=== PATIENT | female | born 1985 ===

== ENCOUNTER 2018-01-01 07:53 | Emergency (ER) | payer OTHER ==
--- NOTE | 2018-01-01 10:04 | OBHP ---
Datetime: 01/01/2018 09:59 IP Adm Impression: Term, intrauterine IP Admit Plan: Discharge home Admit Comment, IP Provider: @ 37.3 wks GA c/o vaginal spotting htis morning x 3. pt dnie sany u rinary or bowel copaints. pt dnies ny recent interocuse, dneis ctx, lof, +FM. pt preors has not seen any additionl spottoting since being here. 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 PMH: denies PSH: denies FHX: non contribuotyr MEDS: PNV NKDA SHX: negative etoh, tobacco ivda A/P @ 37.3 wks GA no evidence of VB, ot in tlabor with mtaeral and featl well being -rh postive as per ob records -dc home -labor, vb, pain precaiotng -f/u PMD 01/02 Pelvic Type - PN: Adequate Extremities - PN: Normal Abdomen - PN: Normal Back - PN: Normal Breast - PN: Normal Lungs - PN: Normal Heart - PN: Normal Thyroid - PN: Normal Neurologic - PN: Normal HEENT - PN: Normal General - PN: Normal Presentation-Admit: Vertex FHR - Baseline A Provider: 125 Membranes, Provider: Intact Contraction Comments Provider: irregular Comments, ACOG Physical Exam: Specululm exam: no blood, scant discharge dark brwon cervix: closed, long , posteiroe Gestation - Est Wks by US: 37.3 EGA AdmitDate IP: 37.3 Vital Signs Provider: Reviewed; Within Normal Limits IP Chief Complaint: Vaginal bleeding NICHD Variability Prov Fetus A: Moderate 6-25bpm FHR Category Provider Fetus A: Category I NICHD Decel Fetus A IP Provider: None Dilatation, Provider: 0 Effacement, Provider: 0 Station, Provider: -3 Genitourinary Exam: Normal DTRs - PN: Normal
--- NOTE | 2018-01-01 10:06 | OBDCSUM ---
Datetime: 01/01/2018 10:03 Discharged to, Provider: Home Follow up at, Provider: DR. WHITE Disch Instr Activity: Normal activity Disch Instr Diet: Regular Discharge Time: 01/01/2018 10:03 Follow up in weeks, Provider: 01/02/18 Disch Referrals: None Disch Activity Restrictions: No lifting
[2018-01-01 14:15] VITALS: BP 108/70; PULSE 75; RESP 20
== END 2018-01-01 10:15 | disposition home or self-care (01) ==
LOC: C.EROB 07:53
DX: O26.853 Spotting complicating pregnancy, third trimester (principal); Z3A.37 37 weeks gestation of pregnancy

== ENCOUNTER 2018-01-03 09:05 | Inpatient (IN) | payer OTHER ==
[2018-01-03] MEDS ORDERED: Lactated Ringer's 1,000 ML IV SCH ×2 (10:15)
[2018-01-03 10:32] LABS: BASO % 0.1 % (0.0-2.0); EOS % 0.3 % (0.0-4.0); LYMPH # 1.2 K/uL (1.0-4.3); LYMPH % 16.5 % (20.0-40.0); MEAN CELL VOLUME 82.2 fL (81.0-99.0); MEAN CORPUSCULAR HEMOGLOBIN 27.4 pg (27.0-31.0); MEAN CORPUSCULAR HGB CONC 33.4 g/dL (33.0-37.0); MEAN PLATELET VOLUME 7.8 fL (7.2-11.7); MONO # 0.5 K/uL (0.0-0.8); MONO % 6.9 % (0.0-10.0); NEUT # 5.4 K/uL (1.8-7.0); NEUT % 76.2 % (50.0-75.0); NRBC % 0.1 % (0.0-2.0); RBC 4.01 Mil/uL (3.80-5.20); RED CELL DISTRIBUTION WIDTH 15.7 % (11.5-14.5); WHITE BLOOD COUNT 7.1 K/uL (4.8-10.8)
[2018-01-03 10:37] LABS: SQUAMOUS EPITHIAL 3 /hpf (0-5); URINE BILIRUBIN NEGATIVE (NEGATIVE); URINE BLOOD NEGATIVE (NEGATIVE); URINE CLARITY Clear (Clear); URINE COLOR Straw (YELLOW); URINE GLUCOSE (UA) NORMAL (Normal); URINE LEUKOCYTE ESTERASE NEG Leu/uL (Negative); URINE PROTEIN NEGATIVE (NEGATIVE); URINE UROBILINOGEN NORMAL mg/dL (0.2-1.0)
--- NOTE | 2018-01-03 10:41 | OBADHP ---
Datetime: 01/03/2018 10:20 Admit Comment, IP Provider: Patient seen and evaluated 1005 hours. This is a private patient of Dr. Gale Rivera 32 y.o. , LMP unsure, CHRISTO 01/19/18, EGA 37w 5d c/o Ctx: onset 0300 hours. Started timing at 0630 hours, pain scale 7/10 to 8/10, every 5 minutes. (+) AFM; denies LOF, VB. Started passing mucou s plug Tuesday and a bit more 0755 hours. care: Dr. Rivera; denies any issues. 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 Denies abnormal Pap, STIs, fibroids. PMH: denies PSH: denies Allergies: penicillin = anaphylaxis. papaya = urticaria Soc Hx: denies tobacco, illicit drug or EtOH use. x 6 years. Works in sales Fam Hx: Mother age 40 - pneumonia, CA; h/o cervical cancer. Father alive age 50+ - HTN, DM, dyslipidemia; legally blind. No other fam h/o cancner P.E.: as above. WD in pain with contractions. Awake, alert, oriented to time, person and place. Assessment: 32 y.o. P0010, 37w 5d, in labor. Category 1 tracing. Case D/W Dr. Rivera; start pitoci n for augmentaiton. Patient not interested in epidural at this time. GBS (-). Patient is clinically s table. Plan: 1) Admit 2) NPO 3) Admission labs 4) continuous EFM 5) IVFs 6) Pitocin 7) Anticipate vaginal delivery - as per, and discussed with, Dr. Rivera Pelvic Type - PN: Adequate Extremities - PN: Normal Abdomen - PN: Normal Back - PN: Normal Breast - PN: Not Done Lungs - PN: Normal Heart - PN: Normal Thyroid - PN: Normal HEENT - PN: Normal General - PN: Normal Weight - Estimated: 3518 Presentation-Admit: Vertex FHR - Baseline A Provider: 140 Contraction Comments Provider: 3-5 Comments, ACOG Physical Exam: Abdomen: Gravid. Firm with contractions. Fundal height 38 cm All other systems reviewed and are negative Gestation - Est Wks by US: 37w 5d Vital Signs Provider: Reviewed IP Chief Complaint: Uterine contractions NICHD Variability Prov Fetus A: Moderate 6-25bpm NICHD Accel Fetus A IP Provider: 10X10 FHR Category Provider Fetus A: Category I NICHD Decel Fetus A IP Provider: None Dilatation, Provider: 6 Effacement, Provider: 70 Station, Provider: -3 Genitourinary Exam: Normal DTRs - PN: Normal EGA AdmitDate IP: 37.5 IP Adm Impression: Term, intrauterine ; Active labor; Intact Membranes IP Admit Plan: Admit to unit; Initiate labor augmentation protocol Datetime: 01/01/2018 09:59 Neurologic - PN: Normal Membranes, Provider: Intact
[2018-01-03] MEDS ORDERED: Oxytocin 30 UNIT 30 UNITS/500 ML BAG IV ONE ×3 (10:47→12:59)
[2018-01-03] MEDS ORDERED: Dextrose 5%/Lactated Ringer's 1,000 ML IV SCH (11:00)
[2018-01-03 11:05] LABS: ALB/GLOB RATIO 1.1 (1.0-2.1); ALBUMIN 3.7 g/dL (3.5-5.0); ALT/SGPT 23 U/L (9-52); AST/SGOT 27 U/L (14-36); BLOOD UREA NITROGEN 10 mg/dL (7-17); CALCIUM 9.2 mg/dl (8.6-10.4); GFR AFRICAN-AMERICAN > 60; GFR NON-AFRICAN AMERICAN > 60
--- NOTE | 2018-01-03 13:04 | OBPN ---
Datetime: 01/03/2018 12:55 IP Progress Impression: Normal progression of labor IP Procedures: Artificial ROM Pool Provider: Positive Membranes, Provider: Ruptured Contraction Comments Provider: q 2-3 min FHR - Baseline A Provider: 155 Gestation - Est Wks by US: 37.5 Presentation-Admit: Vertex IP Progress Note Comment: pt ewa and exmaien dfor progtresoisn o lfoab VS EFM: Cat I TO:O: q 3 mn -2 arom clear a/p g10 @ 37.5 wks in labor con tcurent maint Vital Signs Provider: Reviewed; Within Normal Limits FHR Category Provider Fetus A: Category I NICHD Variability Prov Fetus A: Moderate 6-25bpm Dilatation, Provider: 6 Effacement, Provider: 90 Station, Provider: -2 Datetime: 01/03/2018 10:20 Weight - Estimated: 3518 NICHD Accel Fetus A IP Provider: 10X10 NICHD Decel Fetus A IP Provider: None
[2018-01-03] MEDS ORDERED: Bupivacaine HCl/FentaNYL Cit 100 ML EPI ONE (14:21)
--- NOTE | 2018-01-03 16:16 | OBPN ---
Datetime: 01/03/2018 16:03 IP Progress Impression: Normal progression of labor IP Informed Consent Obtain: Vaginal Delivery IP Procedures: Artificial ROM IP Progress Plan: Continue present management Membranes, Provider: Ruptured FHR - Baseline A Provider: 125 Gestation - Est Wks by US: 37.5 Presentation-Admit: Vertex IP Progress Note Comment: pt seen adn examiend for progresiosn o labor s/ p eidurla a/p @ 37.5 wks GA in labor cont ptiocn as per protonc otn current manganet Vital Signs Provider: Reviewed; Within Normal Limits FHR Category Provider Fetus A: Category I NICHD Variability Prov Fetus A: Moderate 6-25bpm Dilatation, Provider: 7 Effacement, Provider: 90 Station, Provider: -2
[2018-01-03] MEDS ORDERED: Benzocaine/Menthol 20%-0.5% Topical Spray (60 ml) TOP PRN (18:49)
[2018-01-03] MEDS ORDERED: Oxycodone/Acetaminophen 5/325 mg Tab PO PRN ×2 (18:49)
--- NOTE | 2018-01-03 18:49 | OBDS ---
DELIVERY PERSONNEL Delivery Doctor: Tyler Rivera MD Anesthesiologist: MATERNAL INFORMATION Delivery Anesthesia: Epidural Medications in Delivery: Pitocin 30 units IV; Estimated Blood Loss (ml): 300 Provider Comments: pt was fully dilated and pushing. verbal consent for right mediolateral epistiomy . Atruamtic, deliver yof head, nuchal cord x 1 reduced. atruamtc, spontaneous delivery of anteiror fo llowed by posterior shoulder followed by delivery of the body. both oral and nasal passage of the bab y were bulb suctioned. umbilcal cord was clamped and cut. baby given to assisted living nursing director. cord blood and cord gases collected adn sent x 2. right mediolateral epistiomy repaired with 2-0 and 3-0 chormic. spotneoau deliveyr of intact placenta with membrnes. fundus firm, good hemostaiss, no comlications live male apars 9,9 weigh tof 6lb 10 ounces ebl 300ml LABOR SUMMARY EDC: 01/19/2018 00:00 No. Babies in Womb: 1 LABOR INFORMATION Reason for Induction: Not Applicable Oxytocin: Augmentation Group B Beta Strep: Negative (Annotations: 12/26/17) Antibiotics # of Doses: 0 Antibiotics Time of Last Dose: 0 Steroids Given: None Reason Steroids Not Administered: Not Applicable MEMBRANES Membranes Rupture Method: Artificial Rupture of Membranes: 01/03/2018 12:55 Length of Rupture (hrs): 5.70 Amniotic Fluid Color: Clear Amniotic Fluid Amount: Moderate Amniotic Fluid Odor: Normal STAGES OF LABOR Stage 3 hrs: 0 Stage 3 min: 3 VAGINAL DELIVERY Episiotomy: Right Mediolateral Laceration Extension: N/A Laceration Type: None Laceration Repair: Yes Initial Vag Sponge Count: 10 Final Vag Sponge Count: 10 Initial Vag Sharps Count: 2 Final Vag Sharps Count: 2 Sponge Count Correct: Yes; Vaginal Sweep Performed Count Comment: 2 suture needle and 1 needle for drawing BABY A INFORMATION Delivery Date/Time: 01/03/2018 18:37 Method of Delivery: Vaginal Born in Route : No : N/A Forceps: N/A Vacuum Extraction: N/A Shoulder Dystocia : No SHOULDER DYSTOCIA BABY A Infant Delivery Date/Time: 01/03/2018 18:37 PRESENTATION/POSITION BABY A Presentation: Cephalic Cephalic Presentation: Vertex Vertex Position: Left Occipital Anterior Breech Presentation: N/A PLACENTA INFORMATION BABY A Placenta Delivery Time : 01/03/2018 18:40 Placenta Method of Delivery: Spontaneous Placenta Status: Delivered SCORES BABY A Heart Rate 1 min: >100 bpm Resp Effort 1 min: Good Cry Reflex Irritability 1 min: Cough or Sneeze or Pulls Away Muscle Tone 1 min: Active Motion Color 1 min: Body [place], Extremities Blue Resuscitation Effort 1 min: N/A SCORE 1 MIN: 9 Heart Rate 5 min: >100 bpm Resp Effort 5 min: Good Cry Reflex Irritability 5 min: Cough or Sneeze or Pulls Away Muscle Tone 5 min: Active Motion Color 5 min: Body [place], Extremities Blue Resuscitation Effort 5 min: N/A SCORE 5 MIN: 9 INFORMATION BABY A Gestational Age at Delivery: 37.5 Gestational Status: Term Outcome : Liveborn Condition : Stable Sex: Male IDENTIFICATION/MEDS BABY A ID Band Number: [id number] Sensor Number: [id number] WEIGHT/LENGTH BABY A Infant Birthweight (gms): 3020 Infant Weight (lb): 6 Weight (oz): 10 Length Inches: 19.00 Infant Length cms: 48.3 CORD INFORMATION BABY A No. Cord Vessels: 3 Nuchal Cord : Around Neck x1, Tight Cord Blood Taken: Yes Suction: Mouth; Nose ASSESSMENT BABY A Infant Complications: None Physical Findings at Delivery: Within Normal Limits Respirations: Appears Normal Microfilm Mounter/ALS Called : No Transferred To: [facility]
[2018-01-04 00:12] VITALS: RESP 20; O2SAT 98
--- NOTE | 2018-01-04 09:21 | OBPPN ---
Datetime: 01/04/2018 09:17 PP Pain Prov: Within normal limits PP Nausea Prov: Denies PP Flatus Prov: Yes PP Breasts Prov: Normal PP Heart Prov: Normal PP Lungs Prov: Normal PP Abdomen/Uterus Prov: Normal PP Lochia Prov: Normal PP Vulva/Perineum Prov: Normal PP CVA Tenderness Prov: Normal PP Extremities Prov: Normal PP C/S Incision Prov: Not Applicable PP Progress Prov: Normal PP Comments Phys Exam Prov: fundus firm at lev eo fumbici modaetae lochai non ful smelling eppstiom ed c/d/i hewaling well PP Impression Prov: Normal progression PP Plan Prov: Continue present management PP Progress Note Prov: pt seen and examien dreprots pain contorlle diwth meds ambuiatn voidng, pasisng fluat, breast feedign nadia any sadness or drpession no fver, hcills, nause, vomitnjg VSS PE see above a/p s/ PPD #1 am cbc encourage breat feedign adn mabaiotn pain mangment IP PP Procedures Comments: tdap Vital Signs Provider PP: Reviewed; Within Normal Limits
[2018-01-05] MEDS ORDERED: Tdap Vaccine 0.5 ml Vial (10-64 yrs) IM ONE (11:28)
[2018-01-05 11:30] LABS: BASO % 0.2 % (0.0-2.0); EOS # 0.1 K/uL (0.0-0.7); EOS % 1.1 % (0.0-4.0); HEMOGLOBIN 9.9 g/dL (11.0-16.0); LYMPH % 11.7 % (20.0-40.0); MEAN CELL VOLUME 83.3 fL (81.0-99.0); MEAN CORPUSCULAR HEMOGLOBIN 27.4 pg (27.0-31.0); MEAN CORPUSCULAR HGB CONC 32.9 g/dL (33.0-37.0); MEAN PLATELET VOLUME 7.9 fL (7.2-11.7); MONO # 0.6 K/uL (0.0-0.8); RBC 3.62 Mil/uL (3.80-5.20); RED CELL DISTRIBUTION WIDTH 15.7 % (11.5-14.5); WHITE BLOOD COUNT 8.8 K/uL (4.8-10.8)
[2018-01-05 19:43] VITALS: BP 98/59; PULSE 64; TEMP 98.1
== END 2018-01-05 15:00 | disposition home or self-care (01) | DRG 373 ==
LOC: C.EROB 09:05 → C.4D 10:16 → C.4M 21:11
PROVIDERS: ADMIT Obstetrics & Gynecology; ATTEND Obstetrics & Gynecology
PROC: 0W8NXZZ Division of Female Perineum, External Approach (ICD-10-PCS; principal; 2018-01-03)
PROC: 10E0XZZ Delivery of Products of Conception, External Approach (ICD-10-PCS; 2018-01-03)
DX: O69.1XX0 Labor and delivery complicated by cord around neck, with compression, not applicable or unspecified (principal); Z3A.37 37 weeks gestation of pregnancy; Z37.0 Single live birth